=== PATIENT | female | born 1965 | race Caucasian/White ===

== ENCOUNTER 2021-04-07 13:35 | Outpatient (CLI) | payer OTHER, SELFPAY ==
--- NOTE | ~2021-04-07 | XR_ITS ---
EXAMINATION: XR lumbar spine 2-3V DATE: 04/07/2021 13:57 INDICATION: Lumbago. Sciatica. TECHNIQUE: 3 views of lumbar spine were obtained. COMPARISON: Lumbar spine radiographs 02/11/2011 FINDINGS: There is 7 degrees levocurvature of thoracolumbar spine. Vertebral body heights are normal. There is mildly decreased disc height at L4-L5. There are endplate osteophytes at most levels. There is multilevel mild to moderate facet joint osteoarthritis, worse in lower lumbar spine. IMPRESSION: 1. Mild lumbar spondylosis. Reviewed, dictated and finalized at location A. IMPRESSION: 1. Mild lumbar spondylosis.
--- NOTE | ~2021-04-07 | XR_ITS ---
EXAMINATION: XR hip RT min 2V DATE: 04/07/2021 13:57 INDICATION: Right hip pain. TECHNIQUE: 2 views of right hip were obtained. COMPARISON: Pelvis radiograph 02/11/2011. FINDINGS: Bone alignment is normal. No fracture. There is mild right hip osteoarthritis. IMPRESSION: 1. Mild right hip osteoarthritis. Reviewed, dictated and finalized at location A.
== END 2021-04-07 13:36 | disposition home or self-care (01) ==
LOC: CHSIMG 13:39
PROVIDERS: PCP Family Medicine; Visit Provider Family Medicine
DX: M25.551 Pain in right hip (principal); M54.41 Lumbago with sciatica, right side
CPT/HCPCS: 72100; 73502

== ENCOUNTER 2023-05-25 06:47 | Day surgery (SDC) | payer OTHER, SELFPAY ==
[2023-03-30 15:13] VITALS: BMI 19.7
[2023-05-16 07:43] VITALS: BMI 18.0
--- NOTE | 2023-05-25 07:28 | WPDANESEPPF ---
Anes - Initial Pre Proc Eval Procedure: Operation Date: 05/25/23 09:00 Proposed Procedures p Diagnostic Colonoscopy - Miguel Youngblood MD Date/Time: 05/25/23 07:28 Surgeon: Miguel Youngblood MD Pre Op Diagnosis: Family History of Colon Cancer Patient Data Age: 58 Gender: F Height: 1.7 m Weight: 52.3 kg Allergies Allergy/AdvReac Type Severity Reaction Status Date / Time No Known Allergies Allergy Verified 05/25/23 07:57 Home Medications Medication Instructions Recorded Confirmed Type No Home Medications 05/25/23 05/25/23 History Patient hx anesthesia problems: none Family hx anesthesia problems: none Results Review: All pre-operative results and documents have been reviewed as part of the pre-operative evaluation. [facility] Past Medical History Medical History (Updated 05/25/23 @ 08:13 by Miguel Youngblood MD) Hyperlipidemia Surgical History Surgical History (Updated 05/25/23 @ 07:28 by Zander Santillan DO) History of Social History Social History Smoking packs per day: 0.5 Smoking cigarettes per day: 10.0 Years smoked: 30 Smoking pack-years: 15.00 Smoking status: Current every day smoker Tobacco type: cigarettes Alcohol intake: never Substance use type: does not use Living arrangements: with family Spiritual care concerns: No Anes - Eval Final PreProcedure Day of Procedure 05/25/23 07:28 Patient weight: overweight Heart: regular rate and rhythm Lungs: clear to auscultation Airway: Mallampati scale class II Neurological: alert and oriented Last oral intake: >/= 8 hours ASA classification: II Emergent: no Anesthetic plan: proceed Anesthesia type and monitoring: general GIVS and standard monitoring Results Review: All pre-operative results and documents have been reviewed as part of the pre-operative evaluation. Informed Consent: The patient's anesthetic plan and its attendant risks and benefits were discussed with the patient/family/POA. Questions were solicited and answers provided to the satisfaction of the patient/family/POA.
[2023-05-25 07:58] VITALS: BP 122/79; PULSE 79; RESP 18; TEMP 37.1; O2SAT 98; BMI 17.9
[2023-05-25] MEDS: LACTATED RINGERS 1,000 ML 150 ML IV CONT (08:11)
--- NOTE | 2023-05-25 08:11 | PM.HPGS ---
History of Present Illness History of Present Illness Consent: Risks, benefits, and alternatives have been discussed and questions answered. Patient agrees to proceed with procedure. Chief complaint: Family History of Colon Cancer Narrative: Lola Teran is a 58 year old female Presents for screening colonoscopy. Patient's brother has had colon cancer. Patient herself has a prior history of colon polyps. Most recent colonoscopy was perhaps 8 or 10 years ago. Patient reports that her current weight appetite and bowel movements are normal. She denies abdominal pain. She has had no bleeding. Review of Systems Review of Systems: Review of systems noncontributory. [facility], LAT[facility] Past Medical History Medical History (Updated 05/25/23 @ 08:13 by Miguel Youngblood MD) Hyperlipidemia Surgical History Surgical History (Updated 05/25/23 @ 07:28 by Zander Santillan DO) History of Social History Social History Smoking packs per day: 0.5 Smoking cigarettes per day: 10.0 Years smoked: 30 Smoking pack-years: 15.00 Smoking status: Current every day smoker Tobacco type: cigarettes Alcohol intake: never Substance use type: does not use Living arrangements: with family Spiritual care concerns: No Meds Home Medications and Allergies Home Medications Medication Instructions Recorded Confirmed Type No Home Medications 05/25/23 05/25/23 History Allergies Allergy/AdvReac Type Severity Reaction Status Date / Time No Known Allergies Allergy Verified 05/25/23 07:57 Vital Signs Vital Signs - 24 hr 05/25/23 07:58 Temperature 98.8 F Pulse Rate 79 Respiratory Rate 18 Blood Pressure 122/79 Pulse Oximetry 98 Oxygen Delivery Room Air Exam Narrative: Physical exam reveals patient to be alert. Vital signs stable. HEENT exam is unremarkable. Lungs are clear to auscultation and to percussion. Heart is without murmur or extra sounds. Abdomen bowel sounds are present soft nontender with no hepatosplenomegaly. Digital external rectal exam is normal. Assessment and Plan Assessment and plan (1) Family hx of colon cancer: Code(s): Z80.0 - Family history of malignant neoplasm of digestive organs Status: Acute Assessment and Plan: patient's brother has had colon cancer. For this reason surveillance colonoscopy advised now and consider this at 5 year intervals per (2) History of colon polyps: Code(s): Z86.010 - Personal history of colonic polyps Status: Acute Assessment and Plan: patient herself has had prior history of colon polyps.
[2023-05-25 09:48] VITALS: BP 112/85; PULSE 83; RESP 18; O2SAT 100
[2023-05-25 09:58] VITALS: BP 119/83; PULSE 62; RESP 18; O2SAT 100
[2023-05-25 10:08] VITALS: BP 123/85; PULSE 68; RESP 18; O2SAT 100
--- NOTE | 2023-05-25 13:52 | WPDANESPN ---
Anes - Prog Note Post-Op Date/Time: 05/25/23 13:52 Cardiovascular status: normal Respiratory status: normal Airway patency: baseline Mental status: baseline Post-Op hydration status: normal Vital Signs: Last Vital Signs Temp 37.1 C 05/25/23 07:58 Pulse 68 05/25/23 10:08 Resp 18 05/25/23 10:08 BP 123/85 05/25/23 10:08 Pulse Ox 100 05/25/23 10:08 O2 Del Method Room Air 05/25/23 10:08 Pain Score (VAS): 0 I/O: Intake & Output 05/24/23 05/25/23 05/25/23 23:59 07:59 15:59 Intake Total 600 Balance 600 Post-procedural complaints: none Patient Feedback: Patient satisfied with anesthetic care. Other Findings: Patient vital signs back to baseline. Patient denies nausea and vomiting. Patient's pain under control. Patient OK for discharge.
== END 2023-05-25 10:15 | disposition home or self-care (01) ==
PROVIDERS: PCP Family Medicine; Visit Provider Internal Medicine Gastroenterology
PROC: 0DJD8ZZ Inspection of Lower Intestinal Tract, Via Natural or Artificial Opening Endoscopic (ICD-10-PCS; CPT 45378; principal; 2023-05-25 09:00)
DX: Z80.0 Family history of malignant neoplasm of digestive organs (principal); K64.8 Other hemorrhoids
CPT/HCPCS: 45378

== ENCOUNTER 2023-08-26 10:22 | Emergency (ER) | payer OTHER, SELFPAY ==
[2023-08-26] VITALS (16 sets, daily range): BP systolic 105–146; BP diastolic 64–96; PULSE 58–79; RESP 13–24; TEMP 36.9–37.1; O2SAT 97–100
--- NOTE | ~2023-08-26 | CT_ITS ---
EXAMINATION: CTA chest PE protocol DATE: 08/26/2023 12:08 INDICATION: Shortness of breath TECHNIQUE: Computed tomography angiography (CTA) of the chest was performed with 100 mL Omnipaque-350 intravenous contrast timed to evaluate the pulmonary arteries. Coronal maximum intensity projection 3D-reconstructions were created by the technologist. The dose-length product (DLP) was 146.82 mGy-cm. Automated exposure control and iterative reconstruction technique were employed. COMPARISON: None. FINDINGS: The pulmonary arteries are well-opacified. No pulmonary embolism is identified. There is mi ld dependent atelectasis. The lungs are free of focal airspace opacities. There is a 4 mm nodule in t he right middle lobe. No pleural effusion or pneumothorax. No pathologically enlarged thoracic lymph nodes are identified. The heart size is normal. There is mild thoracic spondylosis. IMPRESSION: 1. No pulmonary embolism or acute cardiopulmonary abnormality. 2. 4 mm nodule of the right middle lobe. If the patient has no risk factors for malignancy, no furthe r follow up is required. If there are risk factors for malignancy (i.e., history of smoking, asbesto s or radiation exposure), consider followup CT in 12 months. Reviewed, dictated and finalized at location A. IC RECORDS OFFICER IMPRESSION: 1. No pulmonary embolism or acute cardiopulmonary abnormality. 2. 4 mm nodule of the right middle lobe. If the patient has no risk factors for malignancy, no further follow up is required. If there are risk factors for m alignancy (i.e., history of smoking, asbestos or radiation exposure), consider followup CT in 12 months.
--- NOTE | ~2023-08-26 | XR_ITS ---
EXAMINATION: XR chest 1V portable INDICATION: Shortness of breath TECHNIQUE: Portable AP chest at 1102 hours COMPARISON: None available FINDINGS: The lungs are free of acute opacities. No pleural effusion or pneumothorax. The cardiomedia stinal silhouette is normal. IMPRESSION: 1. No acute cardiopulmonary abnormality. Reviewed, dictated and finalized at location F. OTIONAL ADVERTISING ASSISTANT
--- NOTE | 2023-08-26 10:36 | ECG_ITS ---
Measurements Intervals [place] Rate: 64 P: 57 NH: 133 QRS: 26 QRSD: 77 T: 48 QT: 425 QTc: 441 Interpretive Statements SINUS RHYTHM BASELINE ARTIFACT- I, II, III, AVR, AVL, AVF, V1, V4-V6 NORMAL ECG NO PREVIOUS ECG AVAILABLE FOR COMPARISON Electronically Signed On 08-26-2023 12:31:51 [employer]ELOPMENT by Nikolas Roberts D.O.
[2023-08-26 10:56] LABS: Hematocrit 44.2 % (35.0-49.0); Hemoglobin 15.3 g/dL (12.0-15.0); Mean Corpuscular HGB Conc 34.6 g/dL (32.0-36.0); Mean Corpuscular Hemoglobin 30.3 pg (27.0-31.0); Mean Corpuscular Volume 87.5 fL (78.0-102.0); Mean Platelet Volume 9.7 fl (9.2-11.8); Platelet Count Result 218 K/mm3 (150-420); Red Blood Count 5.05 M/mm3 (4.20-5.40); Red Cell Distribution Width 13.7 % (11.6-14.4); White Blood Count 3.3 K/mm3 (4.8-10.8)
[2023-08-26] MEDS: SODIUM CHLORIDE 0.9% IV 1,000 ML 999 ML IV CONT (11:04)
[2023-08-26] MEDS: ALPRAZolam (*CRX) 0.5 MG TABLET PO (11:06)
[2023-08-26 11:09] LABS: D Dimer 0.79 mg/L (0.19-0.50)
[2023-08-26 11:14] LABS: Lactic Acid Reflex 1.9 mmol/L (0.4-2.0)
[2023-08-26 11:17] LABS: Troponin I 34.6 ng/L (0.00-60.4)
[2023-08-26 11:18] LABS: Alanine Aminotransferase 24 U/L (14-59); Alkaline Phosphatase 71 U/L (46-116); Anion Gap 18 mmol/L (8-16); Aspartate Amino Transferase 23 U/L (15-37); Bilirubin,Total 0.3 mg/dL (0.00-1.00); Blood Urea Nitrogen 16 mg/dL (7-18); Calcium 8.9 mg/dL (8.5-10.1); Carbon Dioxide 19 mmol/L (21-32); Chloride 99 mmol/L (98-108); Estimated CRCL calculation 38 ml/min; Estimated Glomerular Filt Rate 47; Glucose 113 mg/dL (70-99); Magnesium 1.7 mg/dL (1.8-2.4); NT Pro B Type Natriuretic Pept 35 pg/mL (0-125); Osmolality Calculated 284 mOsm/kg (285-295); Potassium 3.4 mmol/L (3.5-5.1); Sodium 136 mmol/L (136-145); Total Protein 7.3 g/dL (6.4-8.2)
[2023-08-26 11:19] LABS: Influenza A QL RT-PCR Negative (Negative); Influenza B QL RT-PCR Negative (Negative); RSV RNA, RT-PCR Negative (Negative); SARS-CoV-2 RNA PCR Positive (Negative)
[2023-08-26 11:29] LABS: Band Neutrophils Percent 0 % (0-6); Basophils Percent Manual 0 % (0-1); Eosinophils Percent Manual 0 % (1-6); Lymphocytes Absolute Manual 0.92 K/mm3 (1.1-4.5); Lymphocytes Percent Manual 28 % (18-44); Monocytes Absolute Manual 0.66 K/mm3 (0.1-0.90); Monocytes Percent Manual 20 % (3-9); Neutrophils Absolute Manual 1.71 K/mm3 (1.7-7.2); Neutrophils Percent Manual 52 % (46-73); Total Cells Counted 100
[2023-08-26 11:30] LABS: Platelet Estimate Adequate (Adequate)
[2023-08-26] MEDS: ONDANSETRON INJ 4 MG/2 ML VIAL IV PUSH (11:42)
--- NOTE | 2023-08-26 13:01 | ED.SOB ---
HPI - SOB/Dyspnea General Chief Complaint: Shortness of Breath/Dyspnea Stated Complaint: vomiting, dizzy Time Seen by Provider: 08/26/23 10:33 Source: patient Mode of arrival: ambulatory Limitations: no limitations History of Present Illness HPI Narrative: this is a 58-year-old female with no significant past medical history is tobacco user, presents with shortness of breath with appears anxious with no cough nor some mild congestion no chest pain no abdominal pain has been having some nausea and vomiting with no flank pain no fever chills. MD elicited complaint: shortness of breath Onset (ago): day(s) Timing: constant Severity: moderate Related Data Allergies Allergy/AdvReac Type Severity Reaction Status Date / Time No Known Allergies Allergy Verified 05/25/23 07:57 Review of Systems Review of Systems: All systems reviewed & are unremarkable except as noted in HPI and below PMFSH Past Medical History Medical History Hyperlipidemia Surgical History Surgical History History of Social History Social History Smoking packs per day: 0.5 Smoking cigarettes per day: 10.0 Years smoked: 30 Smoking pack-years: 15.00 Smoking status: Current every day smoker Tobacco type: cigarettes Alcohol intake: never Substance use type: does not use Living arrangements: with family Spiritual care concerns: No Exam Const: General: healthy appearing Nutritional Appearance: well nourished Orientation/consciousness: patient oriented x3 Limitations: no limitations HENMT: Head: normal to inspection Neck: Neck: normal visual inspection Chest: Chest palpation & inspection: normal inspection of the chest Resp: Effort & Inspection: normal respiratory effort Cardio: Rate: regular rate Rhythm: regular rhythm GI: GI Palp: Yes Soft to palpation Skin: General skin exam: normal color Rashes: no rashes Neuro: General: patient oriented x3 Extrem: General: normal to inspection Psych: Affect: Anxious affect present Course Course Emergency Course: Patient had blood work performed has a normal white blood cell count the rest of her labs were unremarkable chest x-ray is unremarkable with no acute pulmonary abnormalities, patient did have an elevated D-dimer, CTA performed shows no acute pulmonary embolism. Patient did receive IV fluids and IV Zofran for nausea and vomiting, patient did test positive for COVID. Vital Signs Vital signs: Vital Signs Temperature 37.1 C 08/26/23 10:22 Pulse Rate 75 08/26/23 10:22 Respiratory Rate 24 H 08/26/23 10:22 Blood Pressure 137/83 08/26/23 10:22 Pulse Oximetry 99 08/26/23 10:22 Oxygen Delivery Room Air 08/26/23 10:22 Temperature 36.9 C 08/26/23 10:47 Pulse Rate 74 08/26/23 12:32 Respiratory Rate 24 H 08/26/23 12:32 Blood Pressure 105/64 08/26/23 12:32 Pulse Oximetry 99 08/26/23 12:32 Oxygen Delivery Room Air 08/26/23 12:32 MDM - SOB/Dyspnea Lab Data 08/26/23 10:52 08/26/23 10:52 Labs: Lab Results 08/26/23 Range/Units 10:52 WBC 3.3 L (4.8-10.8) K/mm3 RBC 5.05 (4.20-5.40) M/mm3 Hgb 15.3 H (12.0-15.0) g/dL Hct 44.2 (35.0-49.0) % MCV 87.5 (78.0-102.0) fL MCH 30.3 (27.0-31.0) pg MCHC 34.6 (32.0-36.0) g/dL RDW 13.7 (11.6-14.4) % Plt Count 218 (150-420) K/mm3 MPV 9.7 (9.2-11.8) fl Immature Gran % (Auto) Not Reportable Neut % (Auto) Not Reportable Lymph % (Auto) Not Reportable [place] % (Auto) Not Reportable Eos % (Auto) Not Reportable Baso % (Auto) Not Reportable Lymph # (Auto) Not Reportable [place] # (Auto) Not Reportable Eos # (Auto) Not Reportable Baso # (Auto) Not Reportable Abs Immat Gran (auto) Not Reportable Absolute Neuts (auto) Not Repo
== END 2023-08-26 13:30 | disposition home or self-care (01) ==
PROVIDERS: Emergency Provider Emergency Medicine; PCP Family Medicine
DX: U07.1 COVID-19 (principal); R91.1 Solitary pulmonary nodule; F17.210 Nicotine dependence, cigarettes, uncomplicated
CPT/HCPCS: 36415; 71045; 71275; 80053; 83605; 83735; 83880; 84484; 85025; 85380; 87637; 93005; 96361; 96374; 99284; A9270; J2405; J7030; Q9967

== ENCOUNTER 2024-09-26 15:48 | Outpatient (CLI) | payer OTHER, SELFPAY ==
--- NOTE | ~2024-09-26 | CT_ITS ---
EXAMINATION:CT diagnostic chest wo con DATE: 09/26/2024 15:59 INDICATION: Solitary pulmonary nodule. TECHNIQUE: Computed tomography (CT) of the chest was performed without intravenous contrast. Automate d exposure control and iterative reconstruction technique were employed. The dose-length product (DLP ) was 134.63 mGy-cm. COMPARISON: Chest CT 08/26/2023 FINDINGS: There is mild emphysema. Again seen is a 4 mm nodule in right middle lobe, likely benign. T here is mild atelectasis bilaterally. No pleural effusion. The heart size is normal. There are hawkins ry artery calcifications. No pericardial effusion. There is moderate thoracic spondylosis. IMPRESSION: 1. Chronic small pulmonary nodule, likely benign. 2. Mild emphysema. Reviewed, dictated and finalized at location A. ICAL NURSE EDUCATOR
== END 2024-09-26 15:49 | disposition home or self-care (01) ==
LOC: CHSIMG 15:49
PROVIDERS: PCP Family Medicine; Visit Provider Family Medicine
DX: R91.1 Solitary pulmonary nodule (principal); J43.9 Emphysema, unspecified
CPT/HCPCS: 71250

== ENCOUNTER 2024-10-04 09:21 | Outpatient (CLI) | payer OTHER, SELFPAY | END 2024-10-04 09:22 | disposition home or self-care (01) | PROVIDERS: PCP Family Medicine; Visit Provider Family Medicine | DX: J43.9 Emphysema, unspecified (principal); R94.2 Abnormal results of pulmonary function studies | CPT/HCPCS: 94060; 94726; 94729 ==

== ENCOUNTER 2025-06-21 16:05 | Emergency (ER) | payer OTHER, SELFPAY ==
--- NOTE | ~2025-06-21 | XR_ITS ---
EXAMINATION: XR wrist LT min 3V, 06/21/2025 16:11 BUILDINGS AND GROUNDS SUPERVISOR HISTORY: Fall, Lt. wrist pain/ swelling COMPARISON: No comparisons available. Findings: No acute fracture or malalignment. No significant degenerative changes. Soft tissues unremarkable. Impression: No acute fracture or malalignment. Reviewed, dictated and finalized at location P. DINGS AND GROUNDS SUPERVISOR Impression: No acute fracture or malalignment.
--- NOTE | ~2025-06-21 | XR_ITS ---
EXAMINATION: XR forearm LT 2V, 06/21/2025 16:11 INVESTIGATOR UTILITY BILL COMPLAINTS HISTORY: Fall, distal Lt. forearm pain COMPARISON: No comparisons available. Findings: No acute fracture or malalignment. No significant degenerative changes. Soft tissues unremarkable. Impression: No acute fracture or malalignment. Reviewed, dictated and finalized at location P. STIGATOR UTILITY BILL COMPLAINTS Impression: No acute fracture or malalignment.
[2025-06-21 16:05] VITALS: BP 127/72; PULSE 86; RESP 18; TEMP 36.7; O2SAT 96
--- NOTE | 2025-06-21 16:27 | ED.UPPEXIN ---
HPI - Extremity Injury (Upper) General Chief Complaint: Extremity Injury, Upper Stated Complaint: ARM PAIN Time Seen by Provider: 06/21/25 16:08 Source: patient and family Mode of arrival: ambulatory Limitations: no limitations History of Present Illness HPI narrative: This is a 60-year-old female with no significant past medical history was on a hay wagon lifting fran of hay and fell off the head lag in on an outstretched left wrist and arm causing pain with mild swelling has good range of motion has a brisk radial pulse on the left no numbness or tingling pain level is tolerable with no other injuries noted. No loss of consciousness no chest pain no shortness of breath no back pain no other injuries noted. complaint: injury to: left Onset (ago): hour(s) Other Extremity Injury: Left: wrist and arm Handedness: right Place: outdoors Severity: mild Relieving factors: cold therapy Exacerbating factors: immobilization Context: fall Associated symptoms: denies other symptoms Related Data Home Medications ?Medication ?Instructions ?Recorded ?Confirmed ?Last Taken ?Type No Home Medications 06/21/25 06/21/25 Unknown History Allergies Allergy/AdvReac Type Severity Reaction Status Date / Time No Known Allergies Allergy Verified 06/21/25 16:14 Review of Systems Review of Systems: All systems reviewed & are unremarkable except as noted in HPI and below PMFSH Past Medical History Medical History Hyperlipidemia Surgical History Surgical History History of Social History Social History Smoking packs per day: 0.5 Smoking cigarettes per day: 10.0 Years smoked: 30 Smoking pack-years: 15.00 Tobacco type: cigarettes Alcohol intake: never Substance use type: does not use Living arrangements: with family Spiritual care concerns: No Exam Const: General: healthy appearing and no acute distress Nutritional Appearance: well nourished and thin Orientation/consciousness: patient oriented x3 Neck: Neck: normal visual inspection Chest: Chest palpation & inspection: normal inspection of the chest Resp: Effort & Inspection: normal respiratory effort Auscultation: clear to auscultation bilaterally Cardio: Rate: regular rate Rhythm: regular rhythm GI: GI Palp: Yes Soft to palpation Auscultation: normal bowel sounds Back/Spine/Pelvis: Back: no CVA tenderness Skin: General skin exam: normal color Rashes: no rashes Wounds: no wounds Neuro: General: patient oriented x3, moves all extremities and no focal motor deficits Extrem: Other: Tenderness in her left wrist and forearm with palpation and movement Course Course Emergency Course: Medical decision making narrative: The patient was evaluated by myself in the emergency department. History obtained from the patient who is an independent historian physical exam performed in witnessed by nurse. Patient had x-ray performed of the left wrist and forearm which showed no acute fractures, patient declined any pain medication at this time as her pain is tolerable and minimal. Fr[place]isco wrap applied. Repeat assessment: Patient doing well on repeat exam no acute distress Symptoms are stable since arrival to the emergency department. Repeat vital stable Patient agrees with discussion and after medical decision making and agrees with discharge. All questions answered to the patient and family satisfaction. Follow-up with primary in the next 3 to 5 days. Vital Signs Vital signs: Vital Signs Temperature 36.7 C 06/21/25 16:05 Pulse Rate 86 06/21/25 16:05 Respiratory Rate 18 06/21/25 16:05 Blood Pressure 127/72 06/21/25 16:05 Pulse Oximetry 96 06/21/25 16:05 Oxygen Delivery Room Air 06/21/25 16:05 Temperature 36.7 C 06/21/25 16:05 Pulse Rate 86 06/21/25 16:05 Respiratory Rate 18 06/21/25 16:05 Blood Pressure 127/72 06/21/25 16:05 Pulse Oximetry 96 06/21/25 16:05 Oxygen Delivery Room Air 06/21/25 16:05 Critical Care Time Critical Care Time Critical Care Time: No Discharge Plan Discharge Clinical Impression: Sprain and strain of wrist Patient Disposition: Home Condition: Stable Instructions: Antibiotic Form, Wrist Sprain (ED) Additional Instructions: Advised patient to take Tylenol or Motrin as needed continue Fransisco wrap and follow with primary if symptoms persist or worsen. Patient Language: Panamanian Prescriptions: No Action No Home Medications Follow-up/Referrals: Bradford Ramirez MD [Primary Care Provider, Internal Medicine] Time of Disposition: 16:31
--- NOTE | 2025-06-21 16:32 | PC.NURSE ---
On 06/21/25, the student, [MARY VIZCAINO ], provided care and [facility] on this patient. I have reviewed the student's documentation and agree with the findings.
== END 2025-06-21 16:38 | disposition home or self-care (01) ==
PROVIDERS: Emergency Provider Emergency Medicine; PCP Family Medicine
DX: S63.502A Unspecified sprain of left wrist, initial encounter (principal); S66.912A Strain of unspecified muscle, fascia and tendon at wrist and hand level, left hand, initial encounter; E78.5 Hyperlipidemia, unspecified; F17.210 Nicotine dependence, cigarettes, uncomplicated; W17.89XA Other fall from one level to another, initial encounter
CPT/HCPCS: 73090; 73110; 99283